=== PATIENT | female | born 1990 ===

== ENCOUNTER 2017-03-27 21:22 | Emergency (ER) | payer MEDICAID ==
--- NOTE | ~2017-03-27 | EKG ---
PATIENT: LADARIUS FLANAGAN UNIT #: [id number] Ventricular Rate: 110 BPM Atrial Rate: 110 BPM P-R Interval: 138 ms QRS Duration: 76 ms Q-T Interval: 322 ms QTC Calculation(Bezet): 435 ms P [place]: 81 degrees Calculated R [place]: 93 degrees Calculated T [place]: 72 degrees Diagnosis Line: Sinus tachycardia with occasional Premature Diagnosis Line: ventricular complexes Diagnosis Line: Rightward axis Diagnosis Line: Borderline ECG Diagnosis Line: No previous ECGs available Diagnosis Line: Confirmed by PETAR PRATT MD ([id number]) on Diagnosis Line: 03/29/2017 6:37:48 AM INTERPRETING MD: AJ
== END 2017-03-27 23:38 | disposition left against medical advice (07) ==
LOC: CED 21:22
DX: Z53.21 Procedure and treatment not carried out due to patient leaving prior to being seen by health care provider (principal)
CPT/HCPCS: 93005